=== PATIENT | male | born 1930 | race Caucasian/White ===

== ENCOUNTER 2016-03-01 12:47 | Emergency (ER) | payer MEDICARE, BC ==
[~2016-03-01] VITALS: Ht 180.3 cm; Wt 88.5 kg
[2016-03-01 13:21] VITALS: BP 131/78
--- NOTE | 2016-03-01 13:41 | RAD ---
Pelvis with right hip, 3 views, 03/01/2016: History: Fall, pain No fracture or dislocation is identified. The hip joints are well-maintained with only minimal marginal spurring. Scattered arterial calcifications are present. Moderate degenerative change is evident in the lower lumbar spine. IMPRESSION: No acute bony abnormality is detected.
--- NOTE | 2016-03-01 13:43 | RAD ---
Right knee with patella, 4 views, 03/01/2016: History: Fall, pain No fracture or dislocation is identified. There is minimal degenerative change at the patellofemoral articulation. Moderate arterial calcifications are present. IMPRESSION: No acute bony abnormality is detected.
[2016-03-01] MEDS ORDERED: ACET-704 PO (14:08)
--- NOTE | 2016-03-01 14:08 | PHYS DOC ---
Past Medical History Past Medical History: COPD, High Cholesterol, Other Additional Past Medical Histor: HARD OF HEARING, AORTIC VALVE REPLACEMENT Past Surgical History: Appendectomy, Pacemaker, Other Additional Past Surgical Histo: AORTIC VALVE REPLACEMENT Alcohol Use: Rarely Drug Use: None Adult General Chief Complaint Chief Complaint: KNEE INJURY HPI HPI Patient is a 86 year old male with history of high cholesterol and COPD who presents today with mild right anterior knee pain radiating to the right lower extremity and a slight right pain that began on February 23 2016 after he fell. Patient states he tripped at the store and fell down. Patient denies any loss of consciousness. Review of Systems Review of Systems Constitutional: Denies fever or chills [] Musculoskeletal: Right hip and right knee pain Integument: Denies rash or skin lesions [] Neurologic: Denies headache, focal weakness or sensory changes [] Endocrine: Denies polyuria or polydipsia [] Allergies Allergies Allergies Uncoded Allergies Type Severity Reaction Last Updated Verified STATINS Allergy Unknown 05/06/15 Physical Exam Physical Exam Constitutional: Well developed, well nourished, no acute distress, non-toxic appearance. [] Abdomen: Bowel sounds normal, soft, no tenderness, no masses, no pulsatile masses. [] Skin: Warm, dry, no erythema, no rash. [] Back: No tenderness, no CVA tenderness. [] Extremities: Right knee with small amount of diffuse soft tissue swelling, no obvious deformity. No ecchymosis, tenderness on palpation of the right posterior knee. Full range of motion on the right knee. Negative Loretta sign and negative Rodger's sign negative anterior-posterior drawer sign to the right knee. Right hip with no obvious deformity. Full range of motion to the right hip. Adequate internal rotation and external rotation of the hip. Adequate flexion and extension of the right lower extremity. Neurologic: Alert and oriented X 3, normal motor function, normal sensory function, no focal deficits noted. [] Psychologic: Affect normal, judgement normal, mood normal. [] Current Patient Data Vital Signs Vital Signs Date Time Temp Pulse Resp B/P Pulse Ox O2 Delivery O2 Flow Rate FiO2 03/01/16 13:21 97.7 81 18 96 Room Air 97.7 EKG EKG [] Radiology/Procedures Radiology/Procedures [] Course & Med Decision Making Course & Med Decision Making Pertinent Labs and Imaging studies reviewed. (See chart for details) Patient is in the ED with right knee pain and right hip pain after falling on the right knee. Right knee x-ray right hip with pelvic interpreted by radiologist are negative for any acute findings. Patient has right knee contusion, montserrat wrap applied to the right knee by Ed RN, neurovascular exam done by me is normal, cap refill less than 2 seconds. Ice elevation encouraged. Follow-up with open one week or PCP if pain continues. Discharged with Tylenol 3. Dragon Disclaimer Dragon Disclaimer This electronic medical record was generated, in whole or in part, using a voice recognition dictation system. Departure Departure Impression: Primary Impression: Fall from standing Additional Impressions: Contusion of right knee Hip pain, right Disposition: 01 HOME, SELF-CARE Condition: STABLE Referrals: MAMADOU ARREDONDO MD (PCP) VIRGEN MORSE MD follow up with your doctor in 1 week or the provided orthopedic doctor Patient Instructions: Contusion, Fall Prevention and Home Safety Additional Instructions: You were seen for right knee contusion, and right hip pain after falling. Please apply ice to the area. Take the prescribed medicines as ordered. Follow- up with your own doctor or the provided orthopedic doctor in one week. Scripts Acetaminophen With Codeine (Tylenol With Codeine #3 Tablet)1 Each Tablet1 Tab PO Q8HRS PRN PAIN #20 TAB Prov:MAINOR HOOPER APRN 03/01/16 Problem Qualifiers Primary Impression: Fall from standing Encounter type: initial encounter Qualified Code: W19.XXXA - Unspecified fall, initial encounter Additional Impressions: Contusion of right knee Encounter type: initial encounter Qualified Code: S80.01XA - Contusion of right knee, initial encounter MAINOR HOOPER APRN Mar 01, 2016 14:08
[2016-03-01] MEDS ORDERED: HYDROCODONE/APAP 5/325MG TABLET. PO ONE (14:30)
== END 2016-03-01 14:19 | disposition home or self-care (01) ==
LOC: ER 12:47
DX: S80.01XA Contusion of right knee, initial encounter (principal); E78.00 Pure hypercholesterolemia, unspecified; J44.9 Chronic obstructive pulmonary disease, unspecified; Z88.8 Allergy status to other drugs, medicaments and biological substances; W18.09XA Striking against other object with subsequent fall, initial encounter; Y93.89 Activity, other specified; Y92.89 Other specified places as the place of occurrence of the external cause; Y99.8 Other external cause status
CPT/HCPCS: 73502; 73564; 99284

== ENCOUNTER 2018-12-12 13:58 | Emergency (ER) | payer MEDICARE, BC ==
[~2018-12-12] VITALS: Ht 180.3 cm; Wt 90.7 kg
[~2018-12-12 13:58] MED LIST: ACET-704 PO; POLY119P4 PO
[2018-12-12 14:10] VITALS: BP 148/71
[2018-12-12 15:11] LABS: BASO % 1 % (0-3); EOS # 0.1 x10^3/uL (0.0-0.7); EOS % 3 % (0-3); HEMATOCRIT 38.7 % (39.0-53.0); HEMOGLOBIN 13.3 g/dL (13.0-17.5); LYMPH # 0.8 x10^3/uL (1.0-4.8); LYMPH % 19 % (24-48); MEAN CORPUSCULAR HEMOGLOBIN 31 pg (25-35); MEAN CORPUSCULAR HGB CONC 35 g/dL (31-37); MEAN CORPUSCULAR VOLUME 88 fL (79-100); MONO # 0.6 x10^3/uL (0.0-1.1); MONO % 14 % (0-9); NEUT # 2.7 x10^3/uL (1.8-7.7); NEUT % 63 % (31-73); PLATELET COUNT 167 x10^3/uL (140-400); RED BLOOD COUNT 4.38 x10^6/uL (4.30-5.70); WHITE BLOOD COUNT 4.3 x10^3/uL (4.0-11.0)
[2018-12-12 15:21] LABS: CALCIUM 9.2 mg/dL (8.5-10.1); CREATININE 0.9 mg/dL (0.7-1.3); GFR 79.6; POTASSIUM 4.3 mmol/L (3.5-5.1)
[2018-12-12 15:27] LABS: ALBUMIN 3.6 g/dL (3.4-5.0); ALBUMIN/GLOBULIN RATIO 1.2 (1.0-1.7); TOTAL BILIRUBIN 1.8 mg/dL (0.2-1.0); TOTAL PROTEIN 6.7 g/dL (6.4-8.2)
--- NOTE | 2018-12-12 15:38 | RAD ---
RIGHT LEG VENOUS DOPPLER STUDY: Clinical indications: Right leg swelling and pain and bruising. Findings: Duplex sonography (including rodriguez scale evaluation and color flow and waveform spectral analysis) of the proximal aspect of the greater saphenous vein and proximal aspect of the profunda femoral vein and the entire length of the common femoral and superficial femoral and popliteal veins and the tibioperoneal trunk and the proximal aspect of the posterior tibial and peroneal veins of the right leg was performed. Normal compressibility, augmentation of color Doppler flow after calf compression, and respiratory variation of Doppler flow is seen. Thus, there are no sonographic findings of deep venous thrombosis within these veins. Impression: There are no sonographic findings of deep venous thrombosis within the veins discussed above of the right lower extremity. Electronically signed by: Sean Coyle MD (12/12/2018 3:35 PM) [facility] [place]
[2018-12-12] MEDS ORDERED: WARFARIN 5 MG TABLET. PO ONE (16:00)
--- NOTE | 2018-12-12 16:25 | PHYS DOC ---
Past Medical History Past Medical History: COPD, High Cholesterol, Hypertension, Other Additional Past Medical Histor: HARD OF HEARING, AORTIC VALVE REPLACEMENT Past Surgical History: Appendectomy, Pacemaker, Other Additional Past Surgical Histo: AORTIC VALVE REPLACEMENT, STENTS, hernia repair Alcohol Use: Rarely Drug Use: None Adult General Chief Complaint Chief Complaint: GROIN PAIN HPI HPI Patient is a 88 year old male with history of COPD, hypertension, high choleste rol, mechanical valve repair on Coumadin who presents today complaining of bruising to the right lower extremity that he noted this morning. Patient reports he is on Coumadin currently 4 mg daily that was changed from 5 mg and 4 mg every other day a week ago because his INR was 3.09 a week ago. Patient denies any known injury. Denies any chest pain or shortness of breath. He is very concerned he could have a DVT to the right lower extremity and is requesting a venous Doppler. Review of Systems Review of Systems Constitutional: Denies fever or chills [] Eyes: Denies change in visual acuity, redness, or eye pain [] HENT: Denies nasal congestion or sore throat [] Respiratory: Denies cough or shortness of breath [] Cardiovascular: No additional information not addressed in HPI [] GI: Denies abdominal pain, nausea, vomiting, bloody stools or diarrhea [] : Denies dysuria or hematuria [] Musculoskeletal: Denies back pain or joint pain [] Integument: Reports bruising to the right lower extremity Neurologic: Denies headache, focal weakness or sensory changes [] All other systems were reviewed and found to be within normal limits, except as documented in this note. Current Medications Current Medications Current Medications Medications (Trade) Dose Ordered Sig/Mike Start Time Stop Time Status Last Admin Dose Admin Warfarin Sodium (Coumadin) 5 mg 1X ONCE 12/12/18 16:00 12/12/18 16:01 DC 12/12/18 16:00 5 MG Allergies Allergies Allergies Coded Allergies Type Severity Reaction Last Updated Verified [id number]-[id number] Reductase Inhibitor Allergy Intermediate 03/01/16 Yes Physical Exam Physical Exam Constitutional: Well developed, well nourished, no acute distress, non-toxic appearance. [] HENT: Normocephalic, atraumatic, bilateral external ears normal, oropharynx moist, no oral exudates, nose normal. [] Eyes: PERRLA, EOMI, conjunctiva normal, no discharge. [] Neck: Normal range of motion, no tenderness, supple, no stridor. [] Cardiovascular:Heart rate regular rhythm, no murmur [] Lungs & Thorax: Bilateral breath sounds clear to auscultation [] Abdomen: Bowel sounds normal, soft, no tenderness, no masses, no pulsatile masses. [] Skin: Warm, dry, small area of bruising noted on the back of the right knee. Negative Homans sign bilaterally. Back: No tenderness, no CVA tenderness. [] Extremities: No tenderness, no cyanosis, no clubbing, ROM intact, no edema. [] Neurologic: Alert and oriented X 3, normal motor function, normal sensory function, no focal deficits noted. [] Psychologic: Affect normal, judgement normal, mood normal. [] Current Patient Data Vital Signs Vital Signs Date Time Temp Pulse Resp B/P (MAP) Pulse Ox O2 Delivery O2 Flow Rate FiO2 12/12/18 14:10 97.8 70 18 148/71 (96) 100 Room Air 97.8 Lab Values Laboratory Tests Test 12/12/18 15:05 White Blood Count 4.3 x10^3/uL (4.0-11.0) Red Blood Count 4.38 x10^6/uL (4.30-5.70) Hemoglobin 13.3 g/dL (13.0-17.5) Hematocrit 38.7 % (39.0-53.0) L Mean Corpuscular Volume 88 fL (79-100) Mean Corpuscular Hemoglobin 31 pg (25-35) Mean Corpuscular Hemoglobin Concent 35 g/dL (31-37) Red Cell Distribution Width 14.0 % (11.5-14.5) Platelet Count 167 x10^3/uL (140-400) Neutrophils (%) (Auto) 63 % (31-73) Lymphocytes (%) (Auto) 19 % (24-48) L Monocytes (%) (Auto) 14 % (0-9) H Eosinophils (%) (Auto) 3 % (0-3) Basophils (%) (Auto) 1 % (0-3) Neutrophils # (Auto) 2.7 x10^3/uL (1.8-7.7) Lymphocytes # (Auto) 0.8 x10^3/uL (1.0-4.8) L Monocytes # (Auto) 0.6 x10^3/uL (0.0-1.1) Eosinophils # (Auto) 0.1 x10^3/uL (0.0-0.7) Basophils # (Auto) 0.0 x10^3/uL (0.0-0.2) Prothrombin Time 25.0 SEC (11.7-14.0) H Prothrombin Time INR 2.3 (0.8-1.1) H Activated Partial Thromboplast Time 41 SEC (24-38) H Sodium Level 141 mmol/L (136-145) Potassium Level 4.3 mmol/L (3.5-5.1) Chloride Level 106 mmol/L (98-107) Carbon Dioxide Level 27 mmol/L (21-32) Anion Gap 8 (6-14) Blood Urea Nitrogen 16 mg/dL (8-26) Creatinine 0.9 mg/dL (0.7-1.3) Estimated GFR (Cockcroft-Gault) 79.6 BUN/Creatinine Ratio 18 (6-20) Glucose Level 98 mg/dL (70-99) Calcium Level 9.2 mg/dL (8.5-10.1) Total Bilirubin 1.8 mg/dL (0.2-1.0) H Aspartate Amino Transferase (AST) 20 U/L (15-37) Alanine Aminotransferase (ALT) 19 U/L (16-63) Alkaline Phosphatase 56 U/L (46-116) Total Protein 6.7 g/dL (6.4-8.2) Albumin 3.6 g/dL (3.4-5.0) Albumin/Globulin Ratio 1.2 (1.0-1.7) Laboratory Tests 12/12/18 15:05 Laboratory Tests 12/12/18 15:05 EKG EKG [] Radiology/Procedures Radiology/Procedures []PROCEDURE: VENOUS LOWER EXTREMITY RIGHT RIGHT LEG VENOUS DOPPLER STUDY: Clinical indications: Right leg swelling and pain and bruising. Findings: Duplex sonography (including rodriguez scale evaluation and color flow and waveform spectral analysis) of the proximal aspect of the greater saphenous vein and proximal aspect of the profunda femoral vein and the entire length of the common femoral and superficial femoral and popliteal veins and the tibioperoneal trunk and the proximal aspect of the posterior tibial and peroneal veins of the right leg was performed. Normal compressibility, augmentation of color Doppler flow after calf compression, and respiratory variation of Doppler flow is seen. Thus, there are no sonographic findings of deep venous thrombosis within these veins. Impression: There are no sonographic findings of deep venous thrombosis within the veins discussed above of the right lower extremity. Electronically signed by: Adele Coyle MD (12/12/2018 3:35 PM) [facility] DICTATED and SIGNED BY: ADELE COYLE MD DATE: 12/12/18 1535 Course & Med Decision Making Course & Med Decision Making Pertinent Labs and Imaging studies reviewed. (See chart for details) This is a 88-year-old male patient presented to the ED today complaining a bruise on the right lower extremity that he noted today, no known injury. Patient is on Coumadin 4 mg. He reports he was on Coumadin 5 mg/ 4 mg every other day but was taken off the 5 mg dose and asked to take 5 mg only this happened a week ago after his INR was 3.09. Patient denies any chest pain or shortness of breath he is concerned he has a DVT. Venous Doppler of the right lower extremity is negative. Hemoglobin and hematocrit are normal. CMP is negative. INR 2.3. Patient was given 5 mg of Coumadin. Instructed to contact his cardiology physician and PCP today and let them know his INR today. and patient agreed to this plan of care. They were discharged to home in stable condition. Dragon Disclaimer Dragon Disclaimer This electronic medical record was generated, in whole or in part, using a voice recognition dictation system. Departure Departure Impression: Primary Impression: Subtherapeutic anticoagulation Disposition: 01 HOME, SELF-CARE Condition: STABLE Referrals: MAMADOU ARREDONDO MD (PCP) follow up tomorrow Patient Instructions: Warfarin Coagulopathy Additional Instructions: Venous Doppler of the right lower extremity was negative for any acute findings. Please take Coumadin as prescribed by your doctor. Please contact your doctor today and set up a follow-up appointment. Your INR today was 2.3 MAINOR HOOPER APRN Dec 12, 2018 16:25
== END 2018-12-12 16:28 | disposition home or self-care (01) ==
LOC: ER 13:58
DX: S80.11XA Contusion of right lower leg, initial encounter (principal); R79.1 Abnormal coagulation profile; J44.9 Chronic obstructive pulmonary disease, unspecified; E78.00 Pure hypercholesterolemia, unspecified; I10 Essential (primary) hypertension; Z79.01 Long term (current) use of anticoagulants; Z90.89 Acquired absence of other organs; Z95.0 Presence of cardiac pacemaker; Z95.2 Presence of prosthetic heart valve; Z88.8 Allergy status to other drugs, medicaments and biological substances; X58.XXXA Exposure to other specified factors, initial encounter; Y93.89 Activity, other specified; Y92.89 Other specified places as the place of occurrence of the external cause; Y99.8 Other external cause status
CPT/HCPCS: 36415; 80053; 85025; 85610; 85730; 93971; 99285-25

== ENCOUNTER → 2019-05-28 | Outpatient (CLI) | payer MEDICARE, BC ==
--- NOTE | 2019-05-28 10:56 | KCIC ---
HIP RIGHT 2V WITH PELVIS History: Right hip pain. Technique: AP view the pelvis and 2 additional views of the right hip. Comparison: March 01, 2016 Findings: Normal alignment. No fracture. Extensive vascular calcifications. Lower lumbar spondylosis. Impression: 1. No acute osseous abnormality. 2. Lower lumbar spondylosis. Electronically signed by: Renny Vera DO (05/28/2019 10:53 AM) [id number]
== END | disposition home or self-care (01) ==
LOC: KCIC 10:17
PROVIDERS: ATTEND Family Medicine
DX: M25.551 Pain in right hip (principal); M47.816 Spondylosis without myelopathy or radiculopathy, lumbar region
CPT/HCPCS: 73502